=== PATIENT | male | born 1985 | race Caucasian/White ===

== ENCOUNTER 2018-09-21 17:52 | Emergency (ER) | payer MEDICAID ==
[~2018-09-21] VITALS: Ht 162.6 cm; Wt 72.0 kg
[2018-09-21 17:57] VITALS: Ht 162.6 cm; Wt 72.0 kg
--- NOTE | 2018-09-21 19:10 | ERD ---
ER Documentation Chief Complaint Chief Complaint RIGHT TESTICLE SWELLING WITH POSSIBLY INTESTINAL HERNIATION HPI 32-year-old male, previously healthy, presents to the emergency department, complaining of left lower quadrant abdominal pain radiating to the left testicle, according to the patient the symptoms started today after lifting something heavy at work ROS All systems reviewed and are negative except as per history of present illness. Medications Home Meds Active Scripts Ibuprofen* (Motrin*) 600 Mg Tab, 600 MG PO Q8, #15 TAB Prov:JOHN AYERS MD 09/21/18 Allergies Allergies: Coded Allergies: No Known Allergy (Unverified , 09/21/18) PMhx/Soc Medical and Surgical Hx: pt denies Medical Hx, pt denies Surgical Hx Hx Alcohol Use: No Hx Substance Use: No Hx Tobacco Use: No Smoking Status: Never smoker FmHx Family History: No diabetes, No coronary disease Physical Exam Vitals Vital Signs Date Temp Pulse Resp B/P (MAP) Pulse Ox O2 O2 Flow FiO2 Time Delivery Rate 09/21/18 99.7 124 18 141/80 96 17:57 (100) Physical Exam Const: No acute distress Head: Atraumatic Eyes: Normal Conjunctiva ENT: Normal External Ears, Nose and Mouth. Neck: Full range of motion. No meningismus. Resp: Clear to auscultation bilaterally Cardio: Regular rate and rhythm, no murmurs Abd: Soft, tender to palpation in the left groin area. : Uncircumcised patient, testes in scrotum, no masses, mild tenderness to palpation of the left testicle. Skin: No petechiae or rashes Back: No midline or flank tenderness Ext: No cyanosis, or edema Neur: Awake and alert Psych: Normal Mood and Affect Result Diagram: 09/21/18193709/21/181937 Results 24 hrs Laboratory Tests Test 09/21/18 19:38 White Blood Count 7.7 10^3/ul Red Blood Count 5.30 10^6/ul Hemoglobin 15.7 g/dl Hematocrit 45.2 % Mean Corpuscular Volume 85.3 fl Mean Corpuscular Hemoglobin 29.6 pg Mean Corpuscular Hemoglobin Concent 34.7 g/dl Red Cell Distribution Width 12.2 % Platelet Count 281 10^3/UL Mean Platelet Volume 10.2 fl Immature Granulocytes % 0.400 % Neutrophils % 53.1 % Lymphocytes % 36.4 % Monocytes % 7.9 % Eosinophils % 1.6 % Basophils % 0.6 % Nucleated Red Blood Cells % 0.0 /100WBC Immature Granulocytes # 0.030 10^3/ul Neutrophils # 4.1 10^3/ul Lymphocytes # 2.8 10^3/ul Monocytes # 0.6 10^3/ul Eosinophils # 0.1 10^3/ul Basophils # 0.1 10^3/ul Nucleated Red Blood Cells # 0.0 10^3/ul Sodium Level 146 mmol/L Potassium Level 4.0 mmol/L Chloride Level 108 mmol/L Carbon Dioxide Level 23 mmol/L Anion Gap 15 Blood Urea Nitrogen 9 mg/dl Creatinine 0.79 mg/dl Est Glomerular Filtrat Rate mL/min > 60 mL/min Glucose Level 88 mg/dl Calcium Level 9.4 mg/dl Total Bilirubin 0.3 mg/dl Direct Bilirubin 0.00 mg/dl Indirect Bilirubin 0.3 mg/dl Aspartate Amino Transf (AST/SGOT) 39 IU/L Alanine Aminotransferase (ALT/SGPT) 70 IU/L Alkaline Phosphatase 122 IU/L Total Protein 8.1 g/dl Albumin 4.7 g/dl Globulin 3.40 g/dl Albumin/Globulin Ratio 1.38 Current Medications Medications Dose Sig/Tonya Start Time Status Last (Trade) Ordered Route PRN Stop Time Admin Dose Reason Admin Sodium 1,000 ml @ Q1H ONCE 09/21/18 DC 09/21/18 Chloride 1,000 mls/hr IV 19:30 19:37 09/21/18 20:29 Ketorolac 30 mg ONCE STAT 09/21/18 DC 09/21/18 Tromethamine IV 19:24 19:36 (Toradol) 09/21/18 19:28 IV Flush 10 ml STK-MED 09/21/18 DC (NS 10 ml) ONCE .ROUTE 20:20 09/21/18 20:21 Sodium 100 ml @ ud STK-MED 09/21/18 DC Chloride ONCE .ROUTE 20:20 09/21/18 20:21 Iohexol 150 ml STK-MED 09/21/18 DC (Omnipaque ONCE .ROUTE 20:20 300mg/ ml) 09/21/18 20:21 Patient: SRINATH MAYER : 1985 Age: 32 Sex: M MR #: [id number] [facility] #: [id number] DOS: 09/21/18 1921 Ordering MD: JOHN AYERS MD Location: [facility] Room/Bed: PROCEDURE: US Scrotum. CLINICAL INDICATION: Pain TECHNIQUE: Multiple sonographic images of the scrotal region were obtained utilizing a linear array transducer with grayscale and color-flow and a Doppler imaging. The images were reviewed on a high-resolution PACS workstation. COMPARISON: No prior studies are available for comparison. FINDINGS: The right testicle is well visualized and has a normal echotexture. No focal areas of abnormal echogenicity are visualized. The right testicle measures 4.6 x 1.7 x 3.0 cm. There is normal color-flow. The right epididymis is visualized and unremarkable in appearance. There is normal color-flow. The left testicle is well visualized and has a normal echotexture. No focal ar eas abnormal echogenicity are visualized. The left testicle measures 4.7 x 1.7 x 3.3 cm. There is normal color-flow. The left epididymis is visualized and is unremarkable in appearance. There is normal color-flow. There are dilated veins of the pampiniform plexus on the right and left, consistent with varicocele. RPTAT: AA IMPRESSION: Mild bilateral varicocele. CT abdomen: Heart (where visible): Unremarkable. Lung bases: No evidence of pneumonia, mass, pleural effusion. Liver: Normal attenuation. No visible focal mass. Biliary ductal system: No evidence of significant dilatation. Gallbladder: No wall thickening, visible intraluminal stone, or pericholecystic inflammatory change. Pancreas: Unremarkable Stomach: No identifiable focal mass or gross wall thickening. Spleen: No gross splenomegaly. Abdominal colon: Normal in caliber and course. Abdominal small bowel: Normal in caliber, course, and mucosal pattern. Adrenal glands: No visible masses. Right Kidney: Normal in size and contour without focal mass or collecting system dilatation. Left kidney: Normal in size and contour without focal mass or collecting system dilatation. Abdominal aorta: Normal caliber. Dual right renal arteries. Lymph nodes: No significantly enlarged nodes. CT pelvis: Pelvic colon: Normal in caliber and course. No evidence of inflammatory change. Pelvic small bowel: Normal in caliber and course. Appendix: Identified. No evidence of inflammation. Urinary bladder: Normal in size and contour without visible wall thickening. Reproductive structures: Unremarkable. Bony structures included in the scan: No clinically significant abnormalities. IMPRESSION: 1. Unremarkable CT scan of the abdomen and pelvis without evidence of bowel obstruction, bowel perforation, urinary tract stone, urinary tract obstruction, or focal inflammatory process. Procedures/MDM During the medical encounter differential diagnosis like UTI, epididymitis, inguinal hernia, testicular torsion, varicocele, testicular mass were considered, therefore and a scrotal ultrasound and a were requested, see results above. Physical examination and clinical presentation consistent most likely with Left groin sprain. Low suspicion for acute abdomen or acute scrotum During the ED course the patient remained stable, no new complaints. The patient received treatment with presenting overall improvement of the symptoms. Results and clinical impression discussed with who agrees with management. The patient is stable to be treated outpatient and will be discharged home with a Rx for ibuprofen, some side effects of prescribed medications (headache, rash, nausea, vomiting, diarrhea, drowsiness, habituation, bleeding, hypertension, interactions with other medications) were reviewed. The patient was instructed to follow up with the primary care provider in the next 48h. If symptoms persist, worsen or new symptoms develop, then patient should return to the ED immediately. Instructions explained and given directly by me to the patient in Lao with acknowledgment and demonstrated understanding. Disclaimer: Inadvertent spelling and grammatical errors are likely due to EHR/dictation software use and do not reflect on the overall quality of patient care. Also, please note that the electronic time recorded on this note does not necessarily reflect the actual time of the patient encounter. Departure Diagnosis: Primary Impression: Sprain of groin Condition: Stable Additional Instructions: Muchas cherie por [facility] para jacobson servicio. Esperamos que en jacobson visita a la natalie de emergencia jacobson problema medico haya sido solucionado y que se sienta mucho mejor. Para estar seguros que jacobson mejoria sigue en proceso, le pedimos el favor de hacer neno neisha de seguimiento medico con jacboson doctor primario en los proximos 2-4 rodriguez. Lleve con usted estos documentos y las medicinas recetadas. Si ron sintomas empeoran, NO SE ESPERE, por favor regrese a natalie de emergencia INMEDIATAMENTE. En mira que usted no tenga un mdico de atencin primaria: Llame al mdico o clnica comunitaria de referencia que aparece abajo jamal las horas de consultorio para hacer neno neisha para que le vean. CLINICAS: [facility] [phone] [facility] [phone] [id number] [facility] [phone] [address] [facility]. [facility] [phone] [facility] [phone] [id number] [facility]. [phone] JOHN ANDERSON MD Sep 21, 2018 19:10
[2018-09-21] MEDS ORDERED: KETOROLAC 30 MG INJ IV STA (19:24)
[2018-09-21] MEDS ORDERED: SOD CHLORIDE 0.9% 1,000 ML IV ONE (19:30)
[2018-09-21] MEDS ORDERED: IOHEXOL 300MG/ML 150 ML BTL ONE (20:20)
[2018-09-21] MEDS ORDERED: SOD CHLORIDE 0.9% 100 ML ONE (20:20)
[2018-09-21] MEDS ORDERED: IBUP-1542 PO (22:22)
[2018-09-21 22:44] VITALS: BP 137/76; PULSE 77; RESP 16
== END 2018-09-21 22:45 | disposition home or self-care (01) ==
LOC: FTE 17:52
DX: S33.9XXA Sprain of unspecified parts of lumbar spine and pelvis, initial encounter (principal); X50.0XXA Overexertion from strenuous movement or load, initial encounter; Y92.89 Other specified places as the place of occurrence of the external cause
CPT/HCPCS: 74177; 76870; 80053; 85025; 96361; 96374; J1885; J7030; Q9967; Z7502; Z7610